=== PATIENT | female | born 1965 | race African-American/Black ===

== ENCOUNTER 2017-05-19 02:08 | Emergency (ER) | payer OTHER ==
[~2017-05-19] VITALS: Ht 162.6 cm; Wt 73.5 kg
--- NOTE | 2017-05-19 04:12 | ED EYE COMPLAINT ---
History of Present Illness General Chief Complaint: Eye Problems Stated Complaint: "per pt put nail glue in rt eye by mistake" Source: patient, family, old records Exam Limitations: no limitations Vital Signs & Intake/Output Vital Signs & Intake/Output Vital Signs Date Time Temp Pulse Resp B/P B/P Pulse O2 O2 Flow FiO2 Mean Ox Delivery Rate 05/19 0231 98.3 75 18 126/77 98 Room Air Allergies Coded Allergies: No Known Allergies (05/19/17) Triage Note: PT TO ED C/O GLUING EYE SHUT BY ACCIDENT. PT STATES SHE THOUGHT SHE WAS PICKING UP HER EYE DROPS, BUT INSTEADY SHE WAS PICKING UP HER NAIL GLUE. PT R EYE NOW GLUED SHUT. AT BEDSIDE FOR EVAL Triage Nurses Notes Reviewed? yes Onset: Just prior to arrival Duration: hour(s):, constant, continues in ED Timing: recent history Injury Environment: home Severity: severe No Modifying Factors: none Right Eye Associated Symptoms: glued shut LMP (ages 10-50): unknown : No Patient currently breastfeeds: No HPI: Prior to admission patient accidentally placed nail glue in her right eye causing it to glue shut. She denies fever chills nausea vomiting diarrhea abdominal pain chest pain shortness breath headache dysuria rash bleeding. (QUIQUE ABRAHAM MD) Past History Travel History Traveled to [place] past 21 day No Medical History Any Pertinent Medical History? see below for history Neurological: NONE EENT: allergies Cardiovascular: NONE Respiratory: NONE Gastrointestinal: NONE Hepatic: NONE Renal: NONE Musculoskeletal: NONE Psychiatric: NONE Endocrine: NONE Blood Disorders: NONE Cancer(s): NONE Surgical History Surgical History: non-contributory Psychosocial History What is your primary language American Tobacco Use: Never used Family History Hx Contributory? No (QUIQUE ABRAHAM MD) Review of Systems Review of Systems Constitutional: Reports: no symptoms. Eyes: Reports: see HPI. Ear: Reports: no symptoms. Nose: Reports: no symptoms. Mouth: Reports: no symptoms. Throat: Reports: no symptoms. Respiratory: Reports: no symptoms. Cardiovascular: Reports: no symptoms. GI: Reports: no symptoms. Genitourinary: Reports: no symptoms. Musculoskeletal: Reports: no symptoms. Skin: Reports: no symptoms. Neurological/Psychological: Reports: no symptoms. Hematologic/Endocrine: Reports: no symptoms. Immunologic/Allergic: Reports: no symptoms. All Other Systems: Reviewed and Negative (QUIQUE ABRAHAM MD) Physical Exam General Appearance: well developed/nourished, mild distress General Inspection: normal inspection Eyelid: normal inspection Conjunctiva/Sclera: normal inspection Cornea: normal inspection EOM: intact Pupil: normal accommodation, normal pupil, PERRL Anterior Chamber: normal inspection General Inspection: glued shut Physical Exam Head: atraumatic Ears: Bilateral: canal normal, Tympanic normal. Nose: normal inspection Mouth/Throat: normal mouth inspection Neck: normal inspection, supple Cardiovascular/Respiratory: normal breath sounds, regular rate/rhythm Neurologic/Psych: awake, alert, oriented x 3, normal mood/affect Skin: intact, normal color, warm/dry (QUIQUE ABRAHAM MD) Progress Differential Diagnosis: eye glued shut Plan of Care: bacitracin, olive oil, margarine Hand-Off Endorsed To: WILD PIPER MD Endorsed Time: 0700 Pending: other (opening eye) Comments: Multiple items used to dissolve glue including bacitracin, petroleum jelly, margarine, olive oil, sodium bicarbonate. Eye lashes loosened. Lids still adherent 75%. Patient feels continued but slow loosening. 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 I have instilled ophthalmologic tetracaine and ophthalmologic erythromycin. I will reevaluate later. 05/19/2017 12:16:25 PM I have discussed this patient's case with Dr. Russo, but there seems no other potential interventions at this time. I have updated nilsa. Plan alternating bacitracin and erythromycin ointment and ophthalmology follow-up. (LIYAH SAMANO,WILD Gan) Departure Departure Disposition: HOME OR SELF CARE Condition: Stable Clinical Impression Primary Impression: Eyelid problem Referrals: MARYANN SAMANO,KARMEN Leon (PCP/Family) Departure Forms: Customer Survey General Discharge Information (QUIQUE ABRAHAM MD) Departure Additional Instructions: Alternate the prescriptions for erythromycin and bacitracin every 3 hours. He may continue to use the eyewash to help soothe the eye. Follow-up with Dr. Russo tomorrow. Return if any concerns or sudden worsening. Thank you for choosing the [facility] for your care. It was a pleasure to serve you today. Wild Piper M.D. [facility] Prescriptions: Current Visit Scripts Bacitracin/Polymyxin B Sulfate (Bacitracin-Polymyxin Eye Oint) 1 FILM OD Q6 PRN stuck eyelid #1 VIAL [ERYTHROMYCIN EYE ] 1 FILM OD Q6P PRN STUCK EYE LID #1 VIAL (LIYAH SAMANO,WILD Gan)
[2017-05-19] MEDS ORDERED: ERYTHROMYCIN EYE OD (12:28)
[2017-05-19] MEDS ORDERED: BACITRACIN-POL3.5 GM OD (12:28)
[2017-05-19 12:40] VITALS: BP 146/77
== END 2017-05-19 12:42 ==
LOC: ERH 02:08
DX: S09.93XA Unspecified injury of face, initial encounter (principal); X58.XXXA Exposure to other specified factors, initial encounter; Y93.9 Activity, unspecified; Y92.9 Unspecified place or not applicable